=== PATIENT | female | born 1945 | race Caucasian/White ===

== ENCOUNTER 2020-04-13 12:42 | Outpatient (CLI) | payer OTHER | END 2020-04-13 13:00 | disposition home or self-care (01) | LOC: NUCLEAR 12:42 | PROVIDERS: ATTEND Urology | DX: N13.1 Hydronephrosis with ureteral stricture, not elsewhere classified (principal) | CPT/HCPCS: 78708; A9539; J1940 ==

== ENCOUNTER 2021-05-04 12:01 | Outpatient (CLI) | payer OTHER | END 2021-05-04 12:03 | disposition home or self-care (01) | LOC: NUCLEAR 12:01 | PROVIDERS: ATTEND Urology | DX: N13.1 Hydronephrosis with ureteral stricture, not elsewhere classified (principal) | CPT/HCPCS: 78708; A9562 ==

== ENCOUNTER 2021-05-04 15:12 | Outpatient (CLI) | payer OTHER | END 2021-05-04 15:14 | disposition home or self-care (01) | LOC: LAB 15:12 | PROVIDERS: ATTEND Radiology Diagnostic Radiology | DX: N18.9 Chronic kidney disease, unspecified (principal) ==

== ENCOUNTER 2021-05-07 07:34 | Outpatient (CLI) | payer OTHER | END 2021-05-07 07:37 | disposition home or self-care (01) | LOC: TOM 07:34 | PROVIDERS: ATTEND Urology | DX: N13.1 Hydronephrosis with ureteral stricture, not elsewhere classified (principal) | CPT/HCPCS: 74178; Q9965 ==

== ENCOUNTER 2023-07-24 16:59 | Outpatient (CLI) | payer OTHER ==
[2023-07-24 18:30] LABS: ALBUMIN 3.8 gm/dL (3.4-5.0); BILIRUBIN TOTAL 0.5 mg/dL (0.3-1.2); CALCIUM 9.1 mg/dL (8.5-10.1); CREATININE SERUM 0.73 mg/dL (0.55-1.02); GFR 77.1; GLOBULINA 3.6 G/DL (2.4-3.5); POTASSIUM 4.1 mEq/L (3.5-5.1); TOTAL PROTEIN 7.4 gm/dL (6.4-8.2)
== END 2023-07-24 23:00 | disposition home or self-care (01) ==
LOC: LAB 16:59
PROVIDERS: ATTEND Internal Medicine
DX: E78.2 Mixed hyperlipidemia (principal); I11.9 Hypertensive heart disease without heart failure

== ENCOUNTER 2023-12-07 09:39 | Outpatient (CLI) | payer OTHER | END 2023-12-07 09:50 | disposition home or self-care (01) | LOC: TOM 09:39 | PROVIDERS: ATTEND Urology | DX: N13.1 Hydronephrosis with ureteral stricture, not elsewhere classified (principal); R31.0 Gross hematuria | CPT/HCPCS: 74177; Q9965 ==

== ENCOUNTER 2024-01-04 11:05 | Outpatient (CLI) | payer OTHER | END 2024-01-04 11:07 | disposition home or self-care (01) | LOC: NUCLEAR 11:05 | PROVIDERS: ATTEND Urology | DX: N30.01 Acute cystitis with hematuria (principal); N13.1 Hydronephrosis with ureteral stricture, not elsewhere classified | CPT/HCPCS: 78709; A9539 ==

== ENCOUNTER 2024-01-18 12:27 | Outpatient (CLI) | payer OTHER | END 2024-01-18 12:39 | disposition home or self-care (01) | LOC: TOM 12:27 | PROVIDERS: ATTEND Urology | DX: N13.1 Hydronephrosis with ureteral stricture, not elsewhere classified (principal) | CPT/HCPCS: 74177; Q9965 ==

== ENCOUNTER 2024-07-11 12:59 | Outpatient (CLI) | payer OTHER | END 2024-07-11 13:00 | disposition home or self-care (01) | LOC: NUCLEAR 12:59 | PROVIDERS: ATTEND Urology | DX: N13.1 Hydronephrosis with ureteral stricture, not elsewhere classified (principal) | CPT/HCPCS: 78709; A9539 ==